=== PATIENT | female | born 1990 | race Caucasian/White ===

== ENCOUNTER 2020-07-31 23:50 | Emergency (ER) | payer SELFPAY ==
[~2020-07-31] VITALS: Ht 167.6 cm; Wt 95.5 kg
[2020-07-31 23:58] VITALS: BP 13/83; PULSE 84; TEMP 97.3
== END 2020-08-01 01:24 | disposition home or self-care (01) ==
LOC: COL.ER 23:50
DX: S16.1XXA Strain of muscle, fascia and tendon at neck level, initial encounter (principal); W01.198A Fall on same level from slipping, tripping and stumbling with subsequent striking against other object, initial encounter

== ENCOUNTER → 2020-10-11 | Outpatient (CLI) | payer MEDICAID | LOC: COL.RAD 09:07 | DX: M51.36 Other intervertebral disc degeneration, lumbar region (principal) ==

== ENCOUNTER 2020-11-07 20:57 | Emergency (ER) | payer MEDICAID ==
[~2020-11-07] VITALS: Ht 167.6 cm; Wt 100.0 kg
[2020-11-07 21:02] VITALS: TEMP 97.9
[2020-11-07 22:00] VITALS: BP 133/86; PULSE 93
== END 2020-11-07 22:05 | disposition home or self-care (01) ==
LOC: COL.ER 20:57
DX: S60.445A External constriction of left ring finger, initial encounter (principal); F17.210 Nicotine dependence, cigarettes, uncomplicated

== ENCOUNTER 2020-12-10 15:58 | Emergency (ER) | payer MEDICAID ==
[~2020-12-10] VITALS: Ht 167.6 cm; Wt 109.1 kg
[2020-12-10 16:04] VITALS: TEMP 98.1
[2020-12-10 16:47] LABS: BASO # 0.1 (0.0-0.2); BASO % 0.6 % (0.0-2.0); EOS # 0.9 (0.0-0.7); EOS % 6.3 % (0-4.0); GRAN # 7.7 (1.4-6.5); GRAN % 54.6 % (42.2-75.2); HEMATOCRIT 44.1 % (37.0-47.0); HEMOGLOBIN 14.2 g/dl (12.5-16.0); LYMPH # 4.5 (1.2-3.4); MEAN CELL VOLUME 92 fl (80.0-100.0); MEAN CORPUSCULAR HEMOGLOBIN 30 pg (27.0-31.0); MEAN CORPUSCULAR HGB CONC 32 g/dl (33.0-37.0); MEAN PLATELET VOLUME 11.4 fl (7.4-10.4); MONO # 0.9 (0.1-0.6); MONO % 6.2 % (1.7-9.3); PLATELET COUNT 315 K/mm3 (130-400); REDCELL DISTRIBUTION WIDTH-CV 13.3 % (11.5-14.5)
[2020-12-10 16:55] LABS: ALANINE AMINOTRANSFERASE 25 U/L (4-34); ALBUMIN 4.7 gm/dL (3.5-5.0); ALKALINE PHOSPHATASE 124 U/L (50-136); ANION GAP 9 mmol/L (7-16); AST,SGOT 37 U/L (15-37); BILIRUBIN,TOTAL 0.4 mg/dL (0.0-1.0); BLOOD UREA NITROGEN 16 mg/dL (7-17); CALCIUM 9.5 mg/dL (8.4-10.2); CARBON DIOXIDE 28 mmol/L (22-30); CHLORIDE 102 mmol/L (98-107); CREATININE, serum 0.85 (0.52-1.25); GLUCOSE 102 mg/dL (74-106); LIPASE 103 U/L (23-300); POTASSIUM 3.9 mmol/L (3.4-5.0); SODIUM 139 mmol/L (137-145)
[2020-12-10 17:08] LABS: TROPONIN-I < 0.012 ng/mL (0.000-0.035)
[2020-12-10 18:08] VITALS: BP 116/77; PULSE 68
== END 2020-12-10 18:08 | disposition home or self-care (01) ==
LOC: COL.ER 15:58
PROVIDERS: Nurse Practitioner
DX: K21.9 Gastro-esophageal reflux disease without esophagitis (principal); F17.200 Nicotine dependence, unspecified, uncomplicated